=== PATIENT | female | born 1985 | race Caucasian/White ===

== ENCOUNTER 2020-08-22 20:01 | Emergency (ER) | payer MEDICAID ==
[~2020-08-22] VITALS: Ht 149.9 cm; Wt 96.0 kg
[2020-08-22] MEDS ORDERED: IBUPROFEN 600MG TABLET PO STA (21:04)
[2020-08-22 22:45] VITALS: BP 138/87
== END 2020-08-22 22:53 | disposition home or self-care (01) ==
LOC: ER 20:01
DX: M79.672 Pain in left foot (principal); M25.559 Pain in unspecified hip
CPT/HCPCS: 73630; 81025; 99283

== ENCOUNTER 2024-04-08 20:01 | Emergency (ER) | payer MEDICAID, OTHER ==
[~2024-04-08] VITALS: Ht 149.9 cm; Wt 114.5 kg
[2024-04-08 20:03] VITALS: BP 142/83; RESP 16; TEMP 98.2; O2SAT 98
[2024-04-08 20:08] VITALS: PULSE 94
[2024-04-08] MEDS ORDERED: CLOT15CR27 TP (23:58)
[2024-04-08] MEDS ORDERED: IBUP-1523 MT (23:58)
[2024-04-08] MEDS ORDERED: TOPUD MT (23:58)
== END 2024-04-09 00:07 | disposition home or self-care (01) ==
LOC: ER 20:01
DX: R21 Rash and other nonspecific skin eruption (principal)
CPT/HCPCS: 82962; 99281; 99282